=== PATIENT | female | born 1975 | race Caucasian/White ===

== ENCOUNTER 2017-01-20 09:39 | Outpatient (CLI) | payer OTHER ==
[2017-01-23 15:22] LABS: TREPONEMA AB IGG NEGATIVE (())
[2017-01-23 23:58] LABS: HSV 1 IGG INDEX <0.90 INDEX (()); HSV 1/2 IGM INDEX <0.90 INDEX (()); HSV 2 IGG INDEX <0.90 INDEX (())
== END 2017-01-20 09:40 | disposition home or self-care (01) ==
LOC: LAB 09:39
PROVIDERS: ATTEND Family Medicine
DX: Z20.9 Contact with and (suspected) exposure to unspecified communicable disease (principal)
CPT/HCPCS: 36415; 86694; 86695; 86696; 86780; 86803; 87389